=== PATIENT | female | born 1995 | race American Indian/Alaskan Native ===

== ENCOUNTER 2022-01-23 19:49 | Emergency (ER) | payer MEDICAID, OTHER ==
--- NOTE | 2022-01-23 22:16 | Emergency Department Report ---
ED Psych HPI - General Stated Complaint: MH Time Seen by Provider: 01/23/22 22:05 Source: patient, EMS Mode of arrival: Ambulatory Limitations: No Limitations - History of Present Illness Initial Comments: 26-year-old female with an unclear psychiatric history presents to the hospital with rambling speech. Patient apparently has been homeless for several months and not taking psychiatric medications. Patient states she went to her cousin's house because her brother told her that her child was there. Apparently patient's mother called the crisis center regarding her psychiatric behavior and therefore EMS went to the cousin's house to orange picker patient to bring to the [facility] for mental health evaluation. Patient denies hallucinations, suicidal, homicidal ideation. Patient has rambling speech is difficult to follow but is cooperative. RN informed me that mom stated pt is 13 days and delivered 1 baby. - Related Data Home Medications Medication Instructions Recorded Confirmed Last Taken Unobtainable 01/23/22 01/23/22 Unknown Allergies Allergy/AdvReac Type Severity Reaction Status Date / Time No Known Allergies Allergy Unverified 01/23/22 22:12 ED Review of Systems ROS: Stated complaint: MH Other details as noted in HPI Comment: All other systems reviewed and negative ED Past Medical Hx - Medications Home Medications: Home Medications Medication Instructions Recorded Confirmed Last Taken Type Unobtainable 01/23/22 01/23/22 Unknown History ED Physical Exam - Other Other exam information: General: No acute distress Head: Atraumatic Eyes: normal appearance ENT: Moist mucous membranes Neck: Normal appearance, no midline tenderness Chest: Clear to auscultation bilaterally CV: Regular rate and rhythm Abdomen: Soft, normal bowel sounds, nontender, nondistended, no rebound or guarding Back: Normal inspection Extremity: Normal inspection, full range of motion Neuro: Alert O x 3, no facial asymmetry, speech clear, no gross motor sensory deficit Psych: Cooperative, rambling speech Skin: No rash ED Course Vital Signs 01/23/22 01/23/22 01/24/22 20:10 22:21 00:23 Temperature 98.8 F 97.6 F Pulse Rate 65 58 L Respiratory 18 18 16 Rate Blood Pressure 131/79 Blood Pressure 110/50 [Right] O2 Sat by Pulse 99 99 96 Oximetry 01/24/22 03:52 Temperature 98.1 F Pulse Rate 86 Respiratory 16 Rate Blood Pressure Blood Pressure 130/66 [Right] O2 Sat by Pulse 100 Oximetry - Reevaluation(s) Reevaluation #1: 01/23/22 22:36 pt becoming combative with staff. nathaniel and ced ordered for sedation ED Medical Decision Making - Lab Data Result diagrams: 01/24/22 00:56 01/24/22 00:56 Lab Results 01/24/22 01/24/22 01/24/22 Range/Units 00:56 00:56 00:56 WBC 9.8 (4.5-11.0) K/mm3 RBC 4.72 (3.65-5.03) M/mm3 Hgb 11.0 (10.1-14.3) gm/dl Hct 34.5 (30.3-42.9) % MCV 73 L (79-97) fl MCH 23 L (28-32) pg MCHC 32 (30-34) % RDW 20.5 H (13.2-15.2) % Plt Count 379 (140-440) K/mm3 Lymph % (Auto) 24.8 (13.4-35.0) % [place] % (Auto) 7.8 H (0.0-7.3) % Eos % (Auto) 2.6 (0.0-4.3) % Baso % (Auto) 1.1 (0.0-1.8) % Lymph # (Auto) 2.4 (1.2-5.4) K/mm3 [place] # (Auto) 0.8 (0.0-0.8) K/mm3 Eos # (Auto) 0.3 (0.0-0.4) K/mm3 Baso # (Auto) 0.1 (0.0-0.1) K/mm3 Seg Neutrophils % 63.7 (40.0-70.0) % Seg Neutrophils # 6.2 (1.8-7.7) K/mm3 Sodium 137 (137-145) mmol/L Potassium 3.8 (3.6-5.0) mmol/L Chloride 104.0 (98-107) mmol/L Carbon Dioxide 22 (22-30) mmol/L Anion Gap 15 mmol/L BUN 16 (7-17) mg/dL Creatinine 0.6 (0.6-1.2) mg/dL Estimated GFR > 60 ml/min BUN/Creatinine Ratio 27 % Glucose 94 (65-100) mg/dL Calcium 9.4 (8.4-10.2) mg/dL HCG, Quant (0-4) mIU/mL Salicylates < 0.3 L (2.8-20.0) mg/dL Acetaminophen (10.0-30.0) ug/mL Plasma/Serum Alcohol (0-0.07) % 01/24/22 01/24/22 01/24/22 Range/Units 00:56 00:56 00:56 WBC (4.5-11.0) K/mm3 RBC (3.65-5.03) M/mm3 Hgb (10.1-14.3) gm/dl Hct (30.3-42.9) % MCV (79-97) fl MCH (28-32) pg MCHC (30-34) % RDW (13.2-15.2) % Plt Count (140-440) K/mm3 Lymph % (Auto) (13.4-35.0) % [place] % (Auto) (0.0-7.3) % Eos % (Auto) (0.0-4.3) % Baso % (Auto) (0.0-1.8) % Lymph # (Auto) (1.2-5.4) K/mm3 [place] # (Auto) (0.0-0.8) K/mm3 Eos # (Auto) (0.0-0.4) K/mm3 Baso # (Auto) (0.0-0.1) K/mm3 Seg Neutrophils % (40.0-70.0) % Seg Neutrophils # (1.8-7.7) K/mm3 Sodium (137-145) mmol/L Potassium (3.6-5.0) mmol/L Chloride (98-107) mmol/L Carbon Dioxide (22-30) mmol/L Anion Gap mmol/L BUN (7-17) mg/dL Creatinine (0.6-1.2) mg/dL Estimated GFR ml/min BUN/Creatinine Ratio % Glucose (65-100) mg/dL Calcium (8.4-10.2) mg/dL HCG, Quant 1.45 (0-4) mIU/mL Salicylates (2.8-20.0) mg/dL Acetaminophen 5.0 L (10.0-30.0) ug/mL Plasma/Serum Alcohol < 0.01 (0-0.07) % - Medical Decision Making labs unremarkable (pt is 13 days ) ua/uds pending otherwise medically cleared 1013 (s/p im sedating meds) pending consult and dispo Critical Care Time: No Critical care attestation.: If time is entered above; I have spent that time in minutes in the direct care of this critically ill patient, excluding procedure time. ED Disposition Clinical Impression: Medical clearance for psychiatric admission, Psychiatric disorder Disposition: [address] [place] [address] Is pt being admited?: No Condition: Stable Referrals: PAVEL PERALTA MD [Primary Care Provider] - 3-5 Days
[2022-01-23] MEDS ORDERED: ZIPRASIDONE MESYLATE 20 MG VIAL IM ONE (22:36)
[2022-01-23] MEDS ORDERED: diphenhydrAMINE 50 MG/ML VIAL IM ONE (22:36)
[2022-01-24 01:17] LABS: Basophils # (Auto) 0.1 K/mm3 (0.0-0.1); Basophils % (Auto) 1.1 % (0.0-1.8); Eosinophils # (Auto) 0.3 K/mm3 (0.0-0.4); Eosinophils % (Auto) 2.6 % (0.0-4.3); Hematocrit 34.5 % (30.3-42.9); Lymphocytes # (Auto) 2.4 K/mm3 (1.2-5.4); Lymphocytes % (Auto) 24.8 % (13.4-35.0); Mean Corpuscular HGB Conc 32 % (30-34); Mean Corpuscular Volume 73 fl (79-97); Monocytes # (Auto) 0.8 K/mm3 (0.0-0.8); Monocytes % (Auto) 7.8 % (0.0-7.3); Platelet Count 379 K/mm3 (140-440); Red Blood Count 4.72 M/mm3 (3.65-5.03)
[2022-01-24 01:18] LABS: Red Cell Distribution Width 20.5 % (13.2-15.2)
[2022-01-24 01:22] LABS: Blood Urea Nitrogen 16 mg/dL (7-17); Calcium 9.4 mg/dL (8.4-10.2); Hemolysis Index 34
[2022-01-24 01:35] LABS: BUN/Creatinine Ratio 27
[2022-01-24 08:33] LABS: Mucus,Urine 3+ /HPF
[2022-01-24 08:40] LABS: Amphetamine Screen,Urine Negative; Benzodiazepines Screen,Urine Negative; Cocaine Screen,Urine Negative; Methadone Screen,Urine Negative; Opiate Screen,Urine Negative
[2022-01-24 08:43] LABS: Color,Urine Amber (Yellow)
[2022-01-24 08:44] LABS: Bilirubin,Urine Negative (Negative); Blood,Urine 2+ (Negative)
[2022-01-24 08:53] LABS: Cannabinoid Screen,Urine Positive
--- NOTE | 2022-01-24 11:08 | Emergency Department Report ---
Blank Doc - Documentation Documentation: No new events overnight awaiting disposition
--- NOTE | 2022-01-24 14:12 | Consultation ---
History of Present Illness - Reason for Consult Consult date: 01/24/22 Reason for consult: mental health evaluation - History of Present Psychiatric Illness Per note: 26-year-old female with an unclear psychiatric history presents to the hospital with rambling speech. Patient apparently has been homeless for several months and not taking psychiatric medications. Patient states she went to her cousin's house because her brother told her that her child was there. Apparently patient's mother called the crisis center regarding her psychiatric behavior and therefore EMS went to the cousin's house to worm picker patient to bring to the hospital for mental health evaluation. Patient denies hallucinations, suicidal, homicidal ideation. Patient has rambling speech is difficult to follow but is cooperative. RN informed me that mom stated pt is 13 days and delivered 1 baby. The patient was seen today. She presents with flight of ideas and hypervebal. The patient states that she does not have support system. The patient states she on Latuda and sees her therapist monthly. Attempted to reach patient's mother LANIE BELL @ [phone]. Will continue recommending inpatient at this time due to her manic disposition. PAST PSYCHIATRIC HISTORY: Diagnoses: Bipolar Suicide attempts or Self-harm behavior: Denies Prior psychiatric hospitalizations: Yes Substance Abuse history:Denies Previous psychiatric medications tried: Latuda Outpatient treatment: Denies PAST MEDICAL HISTORY: None reported Family Psychiatric History: unknown SOCIAL HISTORY Marital Status: Single Living Arrangements: homeless Employment Status: Unemployed Access to guns/weapons: Denies Education: GED History of Abuse: Denies Legal History: unknown REVIEW OF SYSTEMS Constitutional: Negative for weight loss ENT: Negative for stridor Respiratory: Negative for cough or hemoptysis All other systems reviewed and are negative MENTAL STATUS General Appearance and Behavior: age appropriate, good eye contact, cooperative Cooperation: Cooperative Psychomotor Behavior: within normal limits Mood: depressed Affect and affective range: Congruent with stated mood Thought Process: Circumstantial/flight of ideas Thought Content: Disorganized Speech: Hyperverbal Suicidal Ideation: Denies Homicidal Ideation: Denies Hallucinations: Denies Impulse Control: intact Insight and Judgment: Limited Memory: Limited Attention: Distracted Orientation: alert and oriented Assessment Bipolar Disorder Treatment Plan 1013 Seroquel 50mg po QHS and 25mg po BID, 2nd dose given at 2pm. Medical: Per primary SItter: Defer to primary Disposition: Recommend acute psychiatric inpatient treatment. Will follow. Thanks Case staffed with Dr. Cadet Medications and Allergies Medications and Allergies Allergies Allergy/AdvReac Type Severity Reaction Status Date / Time No Known Allergies Allergy Unverified 01/23/22 22:12 Home Medications Medication Instructions Recorded Confirmed Last Taken Type Unobtainable 01/23/22 01/23/22 Unknown History Mental Status Exam - Vital signs Last Vital Signs Temp 98.1 F 01/24/22 03:52 Pulse 86 01/24/22 03:52 Resp 16 01/24/22 03:52 BP 130/66 01/24/22 03:52 Pulse Ox 100 01/24/22 11:29 Results Result Diagrams: 01/24/22 00:56 01/24/22 00:56 Abnormal lab results 01/24/22 01/24/22 01/24/22 Range/Units 00:56 00:56 00:56 MCV 73 L (79-97) fl MCH 23 L (28-32) pg RDW 20.5 H (13.2-15.2) % [place] % (Auto) 7.8 H (0.0-7.3) % Urine WBC (Auto) (0.0-6.0) /HPF Salicylates < 0.3 L (2.8-20.0) mg/dL Acetaminophen 5.0 L (10.0-30.0) ug/mL 01/24/22 Range/Units 08:22 MCV (79-97) fl MCH (28-32) pg RDW (13.2-15.2) % [place] % (Auto) (0.0-7.3) % Urine WBC (Auto) 16.0 H (0.0-6.0) /HPF Salicylates (2.8-20.0) mg/dL Acetaminophen (10.0-30.0) ug/mL All other labs normal.
[2022-01-24] MEDS ORDERED: ZIPRASIDONE MESYLATE 20 MG VIAL IM PRN (15:46)
[2022-01-24 20:01] VITALS: BP 140/60
[2022-01-24] MEDS ORDERED: QUEtiapine 25 MG TAB PO SCH ×2 (22:00)
== END 2022-01-24 23:00 ==
LOC: ED 19:49
DX: Z13.30 Encounter for screening examination for mental health and behavioral disorders, unspecified (principal); F99 Mental disorder, not otherwise specified; Z20.822 Contact with and (suspected) exposure to COVID-19; Z79.899 Other long term (current) drug therapy
CPT/HCPCS: 36415; 80048; 80307; 81001; 84702; 85025; 87086; 96372; 99285; J1200; J3486; U0003; 80320; G0480